=== PATIENT | male | born 1970 | race Caucasian/White ===

== ENCOUNTER 2023-04-29 11:43 | Emergency (ER) | payer BC, OTHER ==
[2023-04-29] MEDS ORDERED: Lidocaine 2% 5 ML SDV INJECT ONE (12:09)
[2023-04-29] MEDS ORDERED: Bacitracin/Neomycin/Polymyxin B Oint 0.9 GM U/D Packet TOP ONE (12:10)
[2023-04-29] MEDS ORDERED: Diphtheria,Pertussis(Acell),Tetanus Vaccine 0.5 ML Syringe IM ONE (12:49)
== END 2023-04-29 13:00 | disposition home or self-care (01) ==
LOC: KA.ED 11:43
DX: S61.216A Laceration without foreign body of right little finger without damage to nail, initial encounter (principal); I10 Essential (primary) hypertension; J45.909 Unspecified asthma, uncomplicated; Z23 Encounter for immunization; Z79.899 Other long term (current) drug therapy; W26.8XXA Contact with other sharp object(s), not elsewhere classified, initial encounter
CPT/HCPCS: 12001; 90471; 90715; 99282-25; J3490